=== PATIENT | female | born 1975 | race Caucasian/White ===

== ENCOUNTER 2016-06-25 15:24 | Emergency (ER) | payer BC | END 2016-06-25 17:00 | disposition home or self-care (01) | LOC: ER 15:24 | DX: G89.29 Other chronic pain (principal); K21.9 Gastro-esophageal reflux disease without esophagitis; F17.200 Nicotine dependence, unspecified, uncomplicated; Z85.41 Personal history of malignant neoplasm of cervix uteri; Z88.5 Allergy status to narcotic agent | CPT/HCPCS: 99283 ==